=== PATIENT | female | born 1990 | race American Indian/Alaskan Native ===

== ENCOUNTER → 2024-09-19 | Outpatient (CLI) | payer OTHER ==
[2024-09-23 03:06] LABS: RUBELLA AB IGG-REFLAB 4.76 index (Immune >0.99); VARICELLA ZOSTER IGG AB TITER Non Reactive (Non Reactive)
== END | disposition home or self-care (01) ==
LOC: LABMN 10:46
PROVIDERS: ATTEND Internal Medicine
DX: Z02.1 Encounter for pre-employment examination (principal)
CPT/HCPCS: 86706; 86735; 86762; 86765; 86787